=== PATIENT | female | born 1965 ===

== ENCOUNTER 2024-04-07 16:12 | Outpatient (REF) | payer MEDICAID, SELFPAY ==
[2024-04-07 18:14] LABS: Hemoglobin A1C 5.4 % (<5.7)
[2024-04-07 18:19] LABS: Anion Gap 10.2 mmol/L (3-11); BUN 8 mg/dL (7-18); CO2 26.8 mmol/L (21.0-32.0); CREATININE 0.9 mg/dL (0.55-1.02); Calcium 9.3 mg/dL (8.5-10.1); Calculated LDL 123 mg/dL (<100); Chloride 106 mmol/L (98-107); Cholesterol 227 mg/dL (<200); Glucose 84 mg/dL (74-106); HDL Cholesterol 84 mg/dL (40-60); Potassium 4.6 mmol/L (3.5-5.1); Sodium 143 mmol/L (136-145); Triglyceride 101 mg/dL (<150); Vitamin D 25 Total 43.8 ng/mL (30-100)
== END 2024-04-07 16:13 | disposition home or self-care (01) ==
LOC: NCHCN 16:12
PROVIDERS: Visit Provider Family Medicine
DX: M81.0 Age-related osteoporosis without current pathological fracture (principal); R73.9 Hyperglycemia, unspecified; Z13.220 Encounter for screening for lipoid disorders
CPT/HCPCS: 80048; 80061; 82306; 83036

== ENCOUNTER 2024-04-23 02:09 | Outpatient (CLI) | payer MEDICAID, SELFPAY ==
--- NOTE | 2024-04-23 13:38 | DI.MAMMO_ITS ---
Exam(s) MAMMO SCREENING EXAM: MAMMO SCREENING CLINICAL HISTORY: SCREENING MAMMO Z12.31. TECHNIQUE: Bilateral full field digital CC and MLO mammographic images were obtained with 3D tomosyn thesis and utilizing computer aided detection (CAD). COMPARISON: Prior outside mammograms dating back 2016 were reviewed. FINDINGS: The fibroglandular tissue pattern is again noted be dense, this somewhat decreasing the sensitivity o f the mammogram for finding hidden underlying lesions. In the right breast there is an asymmetric density-possible nodule measuring 6 x 5 mm seen anteriorly , 2 cm lateral to the nipple on the CC view. Spot compression view recommended. In the left breast posteriorly on the CC view there is an asymmetric density but this is unchanged fr om 2017. Therefore benign. There are no malignant-appearing microcalcification groups in either breast. There is no significant architectural distortion nor skin thickening-retraction. IMPRESSION: Dense bilateral fibroglandular tissue. There is a 6 mm nodule anteriorly in the right breast seen on both CC and MLO views. Spot compression views recommended as well as breast ultrasound. BI-RADS Category 0 - Incomplete: Need additional imaging evaluation Breast Density - Category C - Heterogeneously dense Breast density Category C or D implies that the patient has dense breast tissue. Dense breast tissue can make it harder to find cancer on a mammogram. Dense breast tissue is also associated with an incr eased risk of breast cancer. This information about the result of the mammogram report was provided to the patient to raise their awareness. Use this report when you speak with the patient about their risks for breast cancer, which includes their family history. At that time, you may recommend additional screening tests (Ultrasoun d or MRI) as these tests may add significant information. A negative radiographic report should not delay biopsy if a dominant or clinically suspicious mass is present. Up to ten percent of cancers are not identified on mammography. A negative report may reinforce clinical impression. Adenosis and dense breasts may obscure an underlying neoplasm. False positive reports average 6 to 10%. Patient will receive a letter notifying them of these results.
== END 2024-04-23 02:29 ==
PROVIDERS: Visit Provider Family Medicine
DX: Z12.31 Encounter for screening mammogram for malignant neoplasm of breast (principal); R92.323 Mammographic fibroglandular density, bilateral breasts; R92.333 Mammographic heterogeneous density, bilateral breasts
CPT/HCPCS: 77063; 77067

== ENCOUNTER 2024-05-05 01:02 | Outpatient (CLI) | payer MEDICAID, SELFPAY ==
--- NOTE | 2024-05-05 14:35 | DI.US_ITS ---
Exam(s) MG MAMMO SCREEN CALL BACK UNI US BREAST RT LIMITED EXAM: MG MAMMO SCREEN CALL BACK UNI CLINICAL HISTORY: 6 x 5 mm nodule anteriorly in rt breast 2 cm lateral to nipple. TECHNIQUE: Craniocaudal and mediolateral oblique spot compression digital Mammography views of the r ight breast with Tomosynthesis and right breast ultrasound. COMPARISON: US US BREAST RT LIMITED from 05/05/2024 Mammograms from 2016 through recent exam of 23 April 2024 FINDINGS: Mammography/Tomosynthesis: Masses: Persistent area nodularity noted in the lateral subareolar portion of the breast. Architectural Distortion: None seen. Microcalcifictions: No suspicious pleomorphic-type are seen. Skin Thickening/Nipple Retraction: None. Right breast US: Echotexture: Normal appearance of the glandular tissue. Shadowing: No suspicious foci. Cyst: 13 x 8 x 13 millimeter cluster of cysts located in the lateral breast adjacent to the nipple. Findings correspond to the mammographic nodule. Other smaller cysts are also seen in the vicinity. Solid lesions: None seen. Ductal dilation: None. IMPRESSION: 1. No evidence of malignancy is noted. 2. Unless there is more urgent need, follow-up screening mammography is recommended, as per [employer] guidelines. 3. The findings were discussed with the patient on the date of the examination. BI-RADS Category 2 - Benign Findings Breast Density - Category C - Heterogeneously dense A mammogram that demonstrates density of C or D indicates the patient's breast tissue is dense. Dense breast tissue is very common and is not abnormal, but dense breast tissue can make it harder to find cancer on a mammogram. Also, dense breast tissue may increase their breast cancer risk. This informa tion about the result of the mammogram report was provided to the patient to raise their awareness. U se this report when you speak with the patient about their risks for breast cancer, which includes th eir family history. At that time, you may recommend for more screening tests (Ultrasound or MRI) as t hey might be useful based on their risk. A negative radiographic report should not delay biopsy if a dominant or clinically suspicious mass is present. Up to ten percent of cancers are not identified on mammography. A negative report may reinforce clinical impression. Adenosis and dense breasts may obscure an underlying neoplasm. False positive reports average 6 to 10%. Patient will receive a letter notifying them of these results.
== END 2024-05-05 01:22 ==
PROVIDERS: PCP Family Medicine; Visit Provider Family Medicine
DX: Z12.31 Encounter for screening mammogram for malignant neoplasm of breast (principal); N63.12 Unspecified lump in the right breast, upper inner quadrant
CPT/HCPCS: 76642; 77063; 77067

== ENCOUNTER 2024-11-18 01:58 | Outpatient (CLI) | payer MEDICAID, SELFPAY ==
--- NOTE | 2024-11-18 | DI.RAD_ITS ---
Exam(s) XR HIP RT COMPLETE AP PELVIS EXAM: XR HIP RT COMPLETE AP PELVIS CLINICAL HISTORY: RT HIP PAIN,[id number]. TECHNIQUE: 2D digital imaging was performed. Two views COMPARISON: No exams were available for comparison FINDINGS: BONES: No acute fracture is present. No bony destructive lesion is seen. There are 3 partially threaded screws in the right proximal femur. There is mild deformity of the right femoral neck. Small enthesophytes are seen at the iliac crests and greater trochanters. JOINTS: No dislocation present. The hip joint spaces are maintained bilaterally. There is bilateral acetabular spurring. The SI joints are and pubic symphysis are unremarkable. SOFT TISSUE: Normal. IMPRESSION: Postsurgical changes of the right femur. Bilateral acetabular spurring with maintained joint spaces. DATA REPOSITORY: RADIATION DOSE DELIVERED:
== END 2024-11-18 02:18 ==
LOC: DI 01:58
PROVIDERS: PCP Family Medicine; Visit Provider Family Medicine
DX: Z98.890 Other specified postprocedural states (principal); M25.751 Osteophyte, right hip
CPT/HCPCS: 73502